=== PATIENT | female | born 1945 | race African-American/Black ===

== ENCOUNTER 2017-07-19 10:21 | Inpatient (IN) | payer MEDICARE, BC, OTHER ==
[~2017-07-19] VITALS: Ht 167.6 cm; Wt 77.1 kg
[2017-07-19] MEDS ORDERED: ATOR10TA69 PO (10:26)
[2017-07-19 11:43] LABS: BASOPHILS % 1.1 % (0.0-2.0); EOSINOPHILS % 3.2 % (0.0-5.0); HEMATOCRIT. 39.4 % (36.0-48.0); HEMOGLOBIN. 13.1 g/dL (12.0-16.0); LYMPHOCYTES % 31.8 % (20.0-50.0); MEAN CORPUSCULAR HEMOGLOBIN 30.1 pg (28.0-32.0); MEAN CORPUSCULAR VOLUME 90.9 fL (81.0-99.0); MEAN PLATELET VOLUME 8.4 fl (7.4-10.4); MONOCYTES % 6.9 % (2.0-8.0); PLATELET 255 x1000/uL (130-400); RED BLOOD CELL COUNT 4.34 mill/uL (4.2-5.4); RED CELL DISTRIBUTION WIDTH 14.8 % (11.6-14.6)
[2017-07-19 11:45] LABS: PROTHROMBIN TIME 10.8 sec (9.4-11.6)
[2017-07-19 11:55] LABS: CARBON DIOXIDE 28 mEq/L (21-32); CHLORIDE 104 mEq/L (98-107); TROPONIN I < 0.02 ng/mL (0.00-0.04)
[2017-07-19] MEDS ORDERED: SODIUM CHLORIDE 0.9% 1,000 ML IV ONE (13:45)
[2017-07-19] MEDS ORDERED: LEVETIRACETAM 500MG PREMIX 100 ML IV ONE (14:30)
[2017-07-19 18:30] LABS: CLARITY URINE CLOUDY (CLEAR); COLOR URINE YELLOW (YELLOW); GLUCOSE URINE NEGATIVE (NEGATIVE); KETONES URINE NEGATIVE (NEGATIVE); LEUKOCYTE ESTERASE URINE 3+ (NEGATIVE); NITRITE URINE POSITIVE (NEGATIVE); OCCULT BLOOD URINE TRACE (NEGATIVE); PH URINE 6.5 (4.5-8.0); PROTEIN URINE NEGATIVE (NEGATIVE); SPECIFIC GRAVITY URINE 1.017 (1.005-1.030)
[2017-07-19 20:55] VITALS: BP 129/70
[2017-07-19 22:00] VITALS: BP 129/70
[2017-07-19] MEDS ORDERED: APIX2.5T PO (22:16)
[2017-07-20] VITALS: BP_SYST 126; BP_SYST 158; BP_DIAS 61; BP_DIAS 71
[2017-07-20 04:00] VITALS: BP 138/69
[2017-07-20 07:31] LABS: BASOPHILS % 0.9 % (0.0-2.0); EOSINOPHILS % 2.4 % (0.0-5.0); HEMATOCRIT. 38.4 % (36.0-48.0); HEMOGLOBIN. 12.8 g/dL (12.0-16.0); MEAN CORPUSCULAR HEMOGLOBIN 30.1 pg (28.0-32.0); MEAN CORPUSCULAR VOLUME 90.6 fL (81.0-99.0); MEAN PLATELET VOLUME 8.7 fl (7.4-10.4); MONOCYTES % 8.9 % (2.0-8.0); NEUTROPHILS % 58.8 % (40.0-76.0); PLATELET 240 x1000/uL (130-400); RED BLOOD CELL COUNT 4.24 mill/uL (4.2-5.4); RED CELL DISTRIBUTION WIDTH 14.6 % (11.6-14.6)
[2017-07-20 08:00] VITALS: BP 152/74
[2017-07-20 08:03] LABS: CHLORIDE 106 mEq/L (98-107)
[2017-07-20 08:09] LABS: CARBON DIOXIDE 27 mEq/L (21-32)
[2017-07-20] MEDS: APIXABAN 2.5 MG TABLET PO SCH ×2 (08:31→17:21)
[2017-07-20] MEDS: LEVETIRACETAM 500MG/5ML CUP PO SCH ×2 (08:32→21:38)
[2017-07-20] MEDS ORDERED: IPRATROPIUM/ALBUTEROL 0.5-3(2.5)MG/3ML NEB INH PRN (10:00)
[2017-07-20] MEDS ORDERED: DOCUSATE SODIUM 100MG CAPSULE PO PRN (10:00)
[2017-07-20] MEDS ORDERED: ACETAMINOPHEN 325MG TABLET PO PRN (10:00)
[2017-07-20] MEDS ORDERED: ONDANSETRON HCL 4MG/2ML VIAL IV PRN (10:00)
[2017-07-20 10:45] LABS: CLARITY URINE CLOUDY (CLEAR); COLOR URINE YELLOW (YELLOW); GLUCOSE URINE NEGATIVE (NEGATIVE); KETONES URINE NEGATIVE (NEGATIVE); LEUKOCYTE ESTERASE URINE 3+ (NEGATIVE); NITRITE URINE POSITIVE (NEGATIVE); OCCULT BLOOD URINE 1+ (NEGATIVE); PH URINE 5.5 (4.5-8.0); PROTEIN URINE NEGATIVE (NEGATIVE); SPECIFIC GRAVITY URINE 1.016 (1.005-1.030); UROBILINOGEN URINE 0.2 E.U./dL (0.2-1.0)
[2017-07-20] MEDS: PANTOPRAZOLE SODIUM 40 MG/VIAL IV SCH (11:16)
[2017-07-20] MEDS: LEVOFLOXACIN 250MG PREMIX 50 ML IV SCH (11:16)
[2017-07-20] MEDS: DEXT 5%/0.45% NACL 1000ML 1,000 ML IV SCH (11:16)
[2017-07-20] MEDS: THIAMINE HCL 100MG TABLET PO SCH (11:19)
[2017-07-20] MEDS: FOLIC ACID 1MG TABLET PO SCH (11:19)
[2017-07-20] MEDS: MULTIVITAMINS,THER W-MINERALS TABLET PO SCH (11:19)
[2017-07-20 11:26] LABS: *AMPHETAMINES SCREEN URINE NEGATIVE (NEGATIVE); *BARBITURATES SCREEN URINE NEGATIVE (NEGATIVE); *BENZODIAZEPINES SCREEN URINE NEGATIVE (NEGATIVE); *COCAINE SCREEN URINE NEGATIVE (NEGATIVE); CANNABINOID URINE SCREEN NEGATIVE (NEGATIVE); METHADONE URINE SCREEN NEGATIVE (NEGATIVE); OPIATES URINE SCREEN NEGATIVE (NEGATIVE); PHENCYCLIDINE URINE SCREEN NEGATIVE (NEGATIVE)
[2017-07-20] MEDS ORDERED: PHENYTOIN SODIUM 1,000 MG in SODIUM CHLORIDE 0.9% 100 ML IV NR (11:30)
[2017-07-20 12:05] VITALS: BP 115/71
[2017-07-20 16:00] VITALS: BP 123/73
[2017-07-20 20:00] VITALS: BP 124/62
[2017-07-20] MEDS: ATORVASTATIN CALCIUM 10MG TABLET PO SCH (21:38)
[2017-07-21] VITALS: BP 117/62
[2017-07-21 04:00] VITALS: BP 124/62
[2017-07-21] MEDS: DEXT 5%/0.45% NACL 1000ML 1,000 ML IV SCH ×2 (04:31→21:46)
[2017-07-21 06:50] LABS: EOSINOPHILS % 3.6 % (0.0-5.0); HEMATOCRIT. 37.3 % (36.0-48.0); HEMOGLOBIN. 12.3 g/dL (12.0-16.0); LYMPHOCYTES % 39.2 % (20.0-50.0); MEAN CORPUSCULAR HEMOGLOBIN 29.9 pg (28.0-32.0); MEAN CORPUSCULAR VOLUME 90.7 fL (81.0-99.0); MEAN PLATELET VOLUME 8.9 fl (7.4-10.4); MONOCYTES % 11.9 % (2.0-8.0); NEUTROPHILS % 44.3 % (40.0-76.0); PLATELET 218 x1000/uL (130-400); RED BLOOD CELL COUNT 4.11 mill/uL (4.2-5.4); RED CELL DISTRIBUTION WIDTH 14.6 % (11.6-14.6)
[2017-07-21 07:30] LABS: CARBON DIOXIDE 30 mEq/L (21-32); CHLORIDE 104 mEq/L (98-107)
[2017-07-21 08:00] VITALS: BP 131/60
[2017-07-21] MEDS: FOLIC ACID 1MG TABLET PO SCH (09:13)
[2017-07-21] MEDS: MULTIVITAMINS,THER W-MINERALS TABLET PO SCH (09:13)
[2017-07-21] MEDS: THIAMINE HCL 100MG TABLET PO SCH (09:13)
[2017-07-21] MEDS: APIXABAN 2.5 MG TABLET PO SCH ×2 (09:13→17:12)
[2017-07-21] MEDS: PANTOPRAZOLE SODIUM 40 MG/VIAL IV SCH (09:13)
[2017-07-21] MEDS: LEVETIRACETAM 500MG/5ML CUP PO SCH ×2 (09:13→21:27)
[2017-07-21] MEDS: LEVOFLOXACIN 250MG PREMIX 50 ML IV SCH (10:38)
[2017-07-21 12:00] VITALS: BP 144/44
[2017-07-21 16:00] VITALS: BP 103/63
[2017-07-21 20:00] VITALS: BP 106/55
[2017-07-21] MEDS: ATORVASTATIN CALCIUM 10MG TABLET PO SCH (21:28)
[2017-07-21] MEDS: PHENYTOIN SODIUM EXTENDED 100MG CAPSULE PO SCH (21:28)
[2017-07-22 04:00] VITALS: BP 127/76
[2017-07-22 06:32] LABS: BASOPHILS % 0.8 % (0.0-2.0); HEMATOCRIT. 39.8 % (36.0-48.0); HEMOGLOBIN. 13.3 g/dL (12.0-16.0); MEAN CORPUSCULAR HEMOGLOBIN 30.3 pg (28.0-32.0); MEAN CORPUSCULAR VOLUME 90.4 fL (81.0-99.0); MEAN PLATELET VOLUME 8.9 fl (7.4-10.4); MONOCYTES % 11.5 % (2.0-8.0); NEUTROPHILS % 46.7 % (40.0-76.0); PLATELET 225 x1000/uL (130-400); RED CELL DISTRIBUTION WIDTH 14.6 % (11.6-14.6)
[2017-07-22 07:05] LABS: CARBON DIOXIDE 27 mEq/L (21-32); CHLORIDE 106 mEq/L (98-107)
[2017-07-22 07:18] LABS: TROPONIN I < 0.02 ng/mL (0.00-0.04)
[2017-07-22 07:53] VITALS: BP 120/62
[2017-07-22] MEDS: LEVETIRACETAM 500MG/5ML CUP PO SCH ×2 (11:12→20:11)
[2017-07-22] MEDS: FOLIC ACID 1MG TABLET PO SCH (11:13)
[2017-07-22] MEDS: THIAMINE HCL 100MG TABLET PO SCH (11:13)
[2017-07-22] MEDS: MULTIVITAMINS,THER W-MINERALS TABLET PO SCH (11:13)
[2017-07-22] MEDS: APIXABAN 2.5 MG TABLET PO SCH ×2 (11:13→18:24)
[2017-07-22] MEDS: PANTOPRAZOLE SODIUM 40 MG/VIAL IV SCH (11:13)
[2017-07-22 11:44] VITALS: BP 109/55
[2017-07-22] MEDS: DEXT 5%/0.45% NACL 1000ML 1,000 ML IV SCH (13:38)
[2017-07-22] MEDS: LEVOFLOXACIN 250MG PREMIX 50 ML IV SCH (13:39)
[2017-07-22] MEDS: NITROFURANTOIN MACROCRYSTAL 100 MG CAPSULE PO SCH (15:00)
[2017-07-22 16:52] VITALS: BP 123/66
[2017-07-22 20:00] VITALS: BP 120/71
[2017-07-22] MEDS: PHENYTOIN SODIUM EXTENDED 100MG CAPSULE PO SCH (20:12)
[2017-07-22] MEDS: ATORVASTATIN CALCIUM 10MG TABLET PO SCH (20:12)
[2017-07-23] VITALS: BP 119/75
[2017-07-23 04:00] VITALS: BP 117/65
[2017-07-23] MEDS: DEXT 5%/0.45% NACL 1000ML 1,000 ML IV SCH (04:25)
[2017-07-23 06:55] LABS: BASOPHILS % 0.9 % (0.0-2.0); EOSINOPHILS % 5.7 % (0.0-5.0); HEMATOCRIT. 35.9 % (36.0-48.0); LYMPHOCYTES % 46.2 % (20.0-50.0); MEAN CORPUSCULAR HEMOGLOBIN 30.1 pg (28.0-32.0); MEAN CORPUSCULAR VOLUME 90.1 fL (81.0-99.0); MONOCYTES % 12.8 % (2.0-8.0); NEUTROPHILS % 34.4 % (40.0-76.0); PLATELET 226 x1000/uL (130-400); RED BLOOD CELL COUNT 3.99 mill/uL (4.2-5.4); RED CELL DISTRIBUTION WIDTH 14.3 % (11.6-14.6)
[2017-07-23 07:24] LABS: CARBON DIOXIDE 30 mEq/L (21-32); CHLORIDE 106 mEq/L (98-107)
[2017-07-23 07:45] VITALS: BP 130/72
[2017-07-23] MEDS: PANTOPRAZOLE SODIUM 40 MG/VIAL IV SCH (08:59)
[2017-07-23] MEDS: MULTIVITAMINS,THER W-MINERALS TABLET PO SCH (08:59)
[2017-07-23] MEDS: FOLIC ACID 1MG TABLET PO SCH (08:59)
[2017-07-23] MEDS: THIAMINE HCL 100MG TABLET PO SCH (08:59)
[2017-07-23] MEDS: LEVETIRACETAM 500MG/5ML CUP PO SCH ×2 (08:59→21:53)
[2017-07-23] MEDS: APIXABAN 2.5 MG TABLET PO SCH ×2 (08:59→17:05)
[2017-07-23] MEDS: NITROFURANTOIN MACROCRYSTAL 100 MG CAPSULE PO SCH ×2 (09:01→17:06)
[2017-07-23 11:40] VITALS: BP 141/81
[2017-07-23 19:45] VITALS: BP 129/73
[2017-07-23] MEDS ORDERED: PHENYTOIN 100 MG/4 ML UDC PO NR (21:30)
[2017-07-23] MEDS: FAMOTIDINE 20MG/2ML VIAL IV SCH (21:53)
[2017-07-23] MEDS: ATORVASTATIN CALCIUM 10MG TABLET PO SCH (21:53)
[2017-07-24 00:44] VITALS: BP 137/76
[2017-07-24 05:03] VITALS: BP 136/75
[2017-07-24 06:15] LABS: EOSINOPHILS % 6.4 % (0.0-5.0); HEMATOCRIT. 36.9 % (36.0-48.0); HEMOGLOBIN. 12.3 g/dL (12.0-16.0); LYMPHOCYTES % 44.8 % (20.0-50.0); MEAN CORPUSCULAR HEMOGLOBIN 30.1 pg (28.0-32.0); MEAN CORPUSCULAR VOLUME 90.6 fL (81.0-99.0); MEAN PLATELET VOLUME 8.9 fl (7.4-10.4); MONOCYTES % 11.6 % (2.0-8.0); NEUTROPHILS % 36.2 % (40.0-76.0); PLATELET 223 x1000/uL (130-400); RED BLOOD CELL COUNT 4.07 mill/uL (4.2-5.4); RED CELL DISTRIBUTION WIDTH 14.8 % (11.6-14.6)
[2017-07-24 07:12] LABS: CARBON DIOXIDE 28 mEq/L (21-32); CHLORIDE 106 mEq/L (98-107)
[2017-07-24 07:46] VITALS: BP 111/66
[2017-07-24] MEDS: LEVETIRACETAM 500MG/5ML CUP PO SCH (08:35)
[2017-07-24] MEDS: FAMOTIDINE 20MG/2ML VIAL IV SCH (08:35)
[2017-07-24] MEDS: MULTIVITAMINS,THER W-MINERALS TABLET PO SCH (08:36)
[2017-07-24] MEDS: APIXABAN 2.5 MG TABLET PO SCH (08:36)
[2017-07-24] MEDS: FOLIC ACID 1MG TABLET PO SCH (08:36)
[2017-07-24] MEDS: NITROFURANTOIN MACROCRYSTAL 100 MG CAPSULE PO SCH (08:36)
[2017-07-24] MEDS: THIAMINE HCL 100MG TABLET PO SCH (08:36)
[2017-07-24 12:00] VITALS: BP 132/75
[2017-07-24 13:24] VITALS: BP 132/75
[2017-07-24 14:51] VITALS: BP 133/66
[2017-07-24] MEDS ORDERED: PHENYTOIN 100 MG/4 ML UDC PO SCH (21:00)
== END 2017-07-24 15:10 | disposition home or self-care (01) | DRG 101 ==
LOC: ER 11:27 → EDBEDREQ 14:27 → 6WST 14:39 → EDBEDREQ 14:45 → ENRESERV 18:22
PROVIDERS: ADMIT Family Medicine Adult Medicine; ATTEND Family Medicine Adult Medicine
DX: G40.909 Epilepsy, unspecified, not intractable, without status epilepticus (principal); E87.2 Acidosis; D68.59 Other primary thrombophilia; R65.10 Systemic inflammatory response syndrome (SIRS) of non-infectious origin without acute organ dysfunction; E44.1 Mild protein-calorie malnutrition; N39.0 Urinary tract infection, site not specified; F03.90 Unspecified dementia, unspecified severity, without behavioral disturbance, psychotic disturbance, mood disturbance, and anxiety; I25.5 Ischemic cardiomyopathy; I25.10 Atherosclerotic heart disease of native coronary artery without angina pectoris; B96.20 Unspecified Escherichia coli [E. coli] as the cause of diseases classified elsewhere; B96.89 Other specified bacterial agents as the cause of diseases classified elsewhere; E78.00 Pure hypercholesterolemia, unspecified; E78.5 Hyperlipidemia, unspecified; I10 Essential (primary) hypertension; M19.90 Unspecified osteoarthritis, unspecified site; Z79.01 Long term (current) use of anticoagulants; Z86.718 Personal history of other venous thrombosis and embolism; Z86.73 Personal history of transient ischemic attack (TIA), and cerebral infarction without residual deficits; Z68.27 Body mass index [BMI] 27.0-27.9, adult
CPT/HCPCS: 36415; 51702; 70450; 70551; 71010; 80048; 80053; 80185; 80305; 81001; 83605; 83735; 84443; 84484; 85025; 85610; 87077; 87086; 87186; 92610; 93005; 93970; 93971; 96361; 96365; 97167; 99285; A6261; C1893; C9113; G0482; J1165; J1953; J1956; J3490; J7030; J7050; J7620

== ENCOUNTER 2018-01-16 14:47 | Inpatient (IN) | payer MEDICARE, BC ==
[~2018-01-16] VITALS: Ht 172.7 cm; Wt 78.5 kg
[~2018-01-16 14:47] MED LIST: APIX2.5T PO; ATOR10TA69 PO
[2018-01-16] MEDS ORDERED: SODIUM CHLORIDE 0.9% 1,000 ML IV ONE (15:12)
[2018-01-16 15:33] LABS: BG BASE EXCESS -0.9 mmol/L (-2.0-2.0); BG CARBOXYHEMOGLOBIN 0.5 % (0.5-1.5); BG DEOXYHEMOGLOBIN 2.9 % (0.0-5.0); BG FRACTION INSPIRED OXYGEN 21; BG HCO3 ACT 21.8 mmol/L (22.0-26.0); BG METHEMOGLOBIN 0.2 % (0.0-1.5); BG OXYGEN SATURATION 97.1 % (92.0-98.5); BG OXYHEMOGLOBIN 96.4 % (94.0-97.0); BG PCO2 30.5 mmHg (35.0-45.0); BG PH 7.473 (7.350-7.450); BG PO2 87.1 mmHg (75.0-100.0); BG SAMPLE SITE RIGHT BRACHIAL; BG TOTAL HEMOGLOBIN 12.8 g/dL (12.0-18.0); BG VENT MODE ROOM AIR
[2018-01-16 15:53] LABS: INR 1.1; PROTHROMBIN TIME 11.2 sec (9.4-11.6)
[2018-01-16 15:55] LABS: HEMATOCRIT. 36.2 % (36.0-48.0); MEAN CORPUSCULAR HEMOGLOBIN 30.7 pg (28.0-32.0); MEAN CORPUSCULAR VOLUME 92.4 fL (81.0-99.0); MEAN PLATELET VOLUME 8.7 fl (7.4-10.4); PLATELET 121 x1000/uL (130-400); RED BLOOD CELL COUNT 3.92 mill/uL (4.2-5.4); RED CELL DISTRIBUTION WIDTH 13.7 % (11.6-14.6)
[2018-01-16 15:58] LABS: CHLORIDE 106 mEq/L (98-107)
[2018-01-16 16:03] LABS: TROPONIN I 0.26 ng/mL (0.00-0.04)
[2018-01-16 16:10] LABS: CARBAMAZEPINE < 0.5 ug/mL (4-12); PHENOBARBITAL < 2.1 ug/mL (15.0-40.0); VALPROIC ACID < 3.0 ug/mL (50-100)
[2018-01-16] MEDS ORDERED: SODIUM CHLORIDE 0.9% 1000ML BAG (SEPSIS BOLUS) IV ONE (16:15)
[2018-01-16] MEDS ORDERED: VANCOMYCIN 1 G PREMIX 200 ML IV ONE (16:15)
[2018-01-16] MEDS ORDERED: PIPERACILLIN/TAZ 3.375G PREMIX 50 ML IV ONE (16:15)
[2018-01-16] MEDS ORDERED: LEVOFLOXACIN 750MG PREMIX 150 ML IV ONE (16:45)
[2018-01-16] MEDS ORDERED: ACETAMINOPHEN 650MG SUPP PR ONE (16:45)
[2018-01-16 16:52] LABS: PLATELET ESTIMATE SLIGHTLY DECREASED
[2018-01-16 17:44] LABS: KETONES URINE TRACE (NEGATIVE); LEUKOCYTE ESTERASE URINE 3+ (NEGATIVE); NITRITE URINE NEGATIVE (NEGATIVE); OCCULT BLOOD URINE 3+ (NEGATIVE); PROTEIN URINE 3+ (NEGATIVE); SPECIFIC GRAVITY URINE 1.023 (1.005-1.030)
[2018-01-16 17:55] LABS: CLARITY URINE CLOUDY (CLEAR); COLOR URINE YELLOW (YELLOW)
[2018-01-16 23:30] VITALS: BP 98/61
[2018-01-17] VITALS: BP 91/56
[2018-01-17] MEDS ORDERED: ACETAMINOPHEN 650MG SUPP PR PRN (01:00)
[2018-01-17] MEDS: DEXT 5%/0.45% NACL 1000ML 1,000 ML IV SCH ×3 (03:31→17:43)
[2018-01-17 03:34] LABS: BG BASE EXCESS -2.6 mmol/L (-2.0-2.0); BG CARBOXYHEMOGLOBIN 0.3 % (0.5-1.5); BG DEOXYHEMOGLOBIN 4.5 % (0.0-5.0); BG FRACTION INSPIRED OXYGEN 21; BG HCO3 ACT 21.1 mmol/L (22.0-26.0); BG METHEMOGLOBIN 0.3 % (0.0-1.5); BG OXYGEN SATURATION 95.5 % (92.0-98.5); BG OXYHEMOGLOBIN 94.9 % (94.0-97.0); BG PH 7.424 (7.350-7.450); BG PO2 75.3 mmHg (75.0-100.0); BG SAMPLE SITE RIGHT RADIAL; BG TOTAL HEMOGLOBIN 11.1 g/dL (12.0-18.0); BG VENT MODE ROOM AIR
[2018-01-17 04:00] VITALS: BP 90/48
[2018-01-17] MEDS: PIPERACILLIN/TAZ 3.375G PREMIX 50 ML IV SCH ×3 (05:33→17:38)
[2018-01-17 09:30] VITALS: BP 101/52
[2018-01-17] MEDS: ENOXAPARIN 40MG/0.4ML SYR SUBCUT SCH (10:01)
[2018-01-17 10:57] LABS: HEMATOCRIT. 31.6 % (36.0-48.0); HEMOGLOBIN. 10.4 g/dL (12.0-16.0); MEAN CORPUSCULAR HEMOGLOBIN 30.1 pg (28.0-32.0); MEAN CORPUSCULAR VOLUME 91.7 fL (81.0-99.0); MEAN PLATELET VOLUME 9.4 fl (7.4-10.4); PLATELET 119 x1000/uL (130-400); RED BLOOD CELL COUNT 3.44 mill/uL (4.2-5.4); RED CELL DISTRIBUTION WIDTH 13.9 % (11.6-14.6)
[2018-01-17 11:02] LABS: INR 1.1; PROTHROMBIN TIME 11.3 sec (9.4-11.6)
[2018-01-17 11:25] LABS: PLATELET ESTIMATE DECREASED
[2018-01-17 11:41] LABS: CHLORIDE 110 mEq/L (98-107)
[2018-01-17 12:45] VITALS: BP 108/56
[2018-01-17] MEDS ORDERED: LEVETIRACETAM 500 MG in SODIUM CHLORIDE 0.9% 100 ML IV SCH (13:45)
[2018-01-17] MEDS: PHENYTOIN SODIUM 300 MG in SODIUM CHLORIDE 0.9% 50 ML IV SCH (15:14)
[2018-01-17] MEDS: LEVETIRACETAM 500MG PREMIX 100 ML IV SCH (15:54)
[2018-01-17 16:26] VITALS: BP 113/68
[2018-01-17 20:00] VITALS: BP 114/60
[2018-01-18] VITALS (10 sets, daily range): BP systolic 102–138; BP diastolic 51–88
[2018-01-18] MEDS: LEVETIRACETAM 500MG PREMIX 100 ML IV SCH ×2 (00:11→10:43)
[2018-01-18] MEDS: DEXT 5%/0.45% NACL 1000ML 1,000 ML IV SCH ×2 (00:13→09:37)
[2018-01-18] MEDS: PIPERACILLIN/TAZ 3.375G PREMIX 50 ML IV SCH ×3 (00:48→11:28)
[2018-01-18 08:03] LABS: HEMATOCRIT. 31.6 % (36.0-48.0); HEMOGLOBIN. 10.6 g/dL (12.0-16.0); MEAN CORPUSCULAR HEMOGLOBIN 30.7 pg (28.0-32.0); MEAN CORPUSCULAR VOLUME 91.4 fL (81.0-99.0); MEAN PLATELET VOLUME 9.5 fl (7.4-10.4); PLATELET 121 x1000/uL (130-400); RED BLOOD CELL COUNT 3.45 mill/uL (4.2-5.4); RED CELL DISTRIBUTION WIDTH 14.1 % (11.6-14.6)
[2018-01-18 08:07] LABS: CHLORIDE 110 mEq/L (98-107)
[2018-01-18 08:12] LABS: BG BASE EXCESS 0.3 mmol/L (-2.0-2.0); BG DEOXYHEMOGLOBIN 1.8 % (0.0-5.0); BG FRACTION INSPIRED OXYGEN 28; BG HCO3 ACT 24.1 mmol/L (22.0-26.0); BG METHEMOGLOBIN 0.3 % (0.0-1.5); BG OXYGEN SATURATION 98.2 % (92.0-98.5); BG OXYHEMOGLOBIN 97.9 % (94.0-97.0); BG PCO2 36.1 mmHg (35.0-45.0); BG PH 7.443 (7.350-7.450); BG PO2 112.9 mmHg (75.0-100.0); BG SAMPLE SITE RIGHT BRACHIAL; BG TOTAL HEMOGLOBIN 10.9 g/dL (12.0-18.0); BG VENT MODE NASAL CANNULA
[2018-01-18 08:29] LABS: CREATINE KINASE 295 IU/L (26-192); CREATINE KINASE MB FRACTION 0.5 ng/mL (0.5-3.6); HDL CHOLESTEROL 31 mg/dL (40-59); LDL CHOLESTEROL 93 mg/dL (5-100); TROPONIN I 0.05 ng/mL (0.00-0.04)
[2018-01-18] MEDS: ENOXAPARIN 40MG/0.4ML SYR SUBCUT SCH (09:37)
[2018-01-18] MEDS: PHENYTOIN SODIUM 300 MG in SODIUM CHLORIDE 0.9% 50 ML IV SCH (09:37)
[2018-01-18 09:39] LABS: PLATELET ESTIMATE SLIGHTLY DECREASED
[2018-01-18] MEDS ORDERED: MAGNESIUM 1 G PREMIX 100 ML IV SCH (11:00)
[2018-01-18] MEDS: THIAMINE HCL 100MG TABLET PO SCH (11:30)
[2018-01-18] MEDS: MULTIVITAMINS,THER W-MINERALS TABLET PO SCH (11:30)
[2018-01-18] MEDS: FOLIC ACID 1MG TABLET PO SCH (11:30)
[2018-01-18] MEDS: DEXT 5%/0.45% NACL KCL 20MEQ/L 1,000 ML IV SCH (13:35)
[2018-01-18 14:11] LABS: VITAMIN B12 SERUM 551 pg/mL (211-911)
[2018-01-18 14:59] LABS: FOLIC ACID (FOLATE) SERUM > 20.00 ng/mL (>5.38)
[2018-01-18 15:41] LABS: T4 FREE 1.25 ng/dL (0.76-1.46)
[2018-01-18 16:23] LABS: AMMONIA 34 uMol/L (<32)
[2018-01-18 17:07] LABS: *AMPHETAMINES SCREEN URINE NEGATIVE (NEGATIVE); *BARBITURATES SCREEN URINE NEGATIVE (NEGATIVE); *BENZODIAZEPINES SCREEN URINE NEGATIVE (NEGATIVE); *COCAINE SCREEN URINE NEGATIVE (NEGATIVE); CANNABINOID URINE SCREEN NEGATIVE (NEGATIVE); METHADONE URINE SCREEN NEGATIVE (NEGATIVE); OPIATES URINE SCREEN NEGATIVE (NEGATIVE); PHENCYCLIDINE URINE SCREEN NEGATIVE (NEGATIVE)
[2018-01-18] MEDS: MEROPENEM 1,000 MG in SODIUM CHLORIDE 0.9% 100 ML IV SCH (18:33)
[2018-01-18] MEDS ORDERED: FOLIC ACID 1 MG, THIAMINE HCL 100 MG, MVI, ADULT NO.1 10 ML in DEXTROSE 5% WATER 1,000 ML IV ONE ×4 (20:30)
[2018-01-18] MEDS: LEVETIRACETAM 500 MG in SODIUM CHLORIDE 0.9% 100 ML IV SCH (20:45)
[2018-01-19] VITALS (12 sets, daily range): BP systolic 122–145; BP diastolic 47–75
[2018-01-19] MEDS: DEXT 5%/0.45% NACL KCL 20MEQ/L 1,000 ML IV SCH ×2 (01:20→14:14)
[2018-01-19] MEDS: MEROPENEM 1,000 MG in SODIUM CHLORIDE 0.9% 100 ML IV SCH ×3 (01:58→17:06)
[2018-01-19 07:44] LABS: BASOPHILS % 0.3 % (0.0-2.0); EOSINOPHILS % 2.9 % (0.0-5.0); HEMATOCRIT. 31.8 % (36.0-48.0); HEMOGLOBIN. 10.5 g/dL (12.0-16.0); LYMPHOCYTES % 15.6 % (20.0-50.0); MEAN CORPUSCULAR HEMOGLOBIN 30.2 pg (28.0-32.0); MEAN CORPUSCULAR VOLUME 91.4 fL (81.0-99.0); MEAN PLATELET VOLUME 9.5 fl (7.4-10.4); MONOCYTES % 14.8 % (2.0-8.0); NEUTROPHILS % 66.4 % (40.0-76.0); PLATELET 127 x1000/uL (130-400); RED BLOOD CELL COUNT 3.48 mill/uL (4.2-5.4)
[2018-01-19] MEDS: MULTIVITAMINS,THER W-MINERALS TABLET PO SCH (08:06)
[2018-01-19] MEDS: FOLIC ACID 1MG TABLET PO SCH (08:06)
[2018-01-19] MEDS: THIAMINE HCL 100MG TABLET PO SCH (08:06)
[2018-01-19 08:12] LABS: CHLORIDE 109 mEq/L (98-107)
[2018-01-19] MEDS: LEVETIRACETAM 500 MG in SODIUM CHLORIDE 0.9% 100 ML IV SCH ×2 (08:13→21:35)
[2018-01-19] MEDS: ENOXAPARIN 40MG/0.4ML SYR SUBCUT SCH ×2 (08:14→21:36)
[2018-01-19 08:27] LABS: HDL CHOLESTEROL 27 mg/dL (40-59); LDL CHOLESTEROL 99 mg/dL (5-100); PHOSPHORUS 2.3 mg/dL (2.5-4.9)
[2018-01-19] MEDS: PHENYTOIN SODIUM 300 MG in SODIUM CHLORIDE 0.9% 50 ML IV SCH (09:17)
[2018-01-19 10:27] LABS: BG CARBOXYHEMOGLOBIN 0.2 % (0.5-1.5); BG DEOXYHEMOGLOBIN 4.4 % (0.0-5.0); BG FRACTION INSPIRED OXYGEN 21; BG HCO3 ACT 27.1 mmol/L (22.0-26.0); BG METHEMOGLOBIN 0.3 % (0.0-1.5); BG OXYGEN SATURATION 95.6 % (92.0-98.5); BG OXYHEMOGLOBIN 95.1 % (94.0-97.0); BG PCO2 39.8 mmHg (35.0-45.0); BG PH 7.451 (7.350-7.450); BG PO2 77.1 mmHg (75.0-100.0); BG SAMPLE SITE RIGHT RADIAL; BG TOTAL HEMOGLOBIN 10.9 g/dL (12.0-18.0); BG VENT MODE ROOM AIR
[2018-01-19] MEDS ORDERED: MAGNESIUM 1 G PREMIX 100 ML IV SCH (11:00)
[2018-01-19] MEDS ORDERED: POTASSIUM CHLORIDE 20MEQ TABLET SR PO NR (11:15)
[2018-01-19] MEDS ORDERED: LACTULOSE 20G/30ML UDC PO NR (15:15)
[2018-01-20] VITALS (11 sets, daily range): BP systolic 114–149; BP diastolic 58–81
[2018-01-20] MEDS: MEROPENEM 1,000 MG in SODIUM CHLORIDE 0.9% 100 ML IV SCH ×3 (01:18→16:49)
[2018-01-20] MEDS: DEXT 5%/0.45% NACL KCL 20MEQ/L 1,000 ML IV SCH ×2 (04:09→16:49)
[2018-01-20 06:37] LABS: HEMATOCRIT. 33.9 % (36.0-48.0); HEMOGLOBIN. 11.3 g/dL (12.0-16.0); MEAN CORPUSCULAR HEMOGLOBIN 30.4 pg (28.0-32.0); MEAN CORPUSCULAR VOLUME 90.9 fL (81.0-99.0); MEAN PLATELET VOLUME 10.1 fl (7.4-10.4); PLATELET 138 x1000/uL (130-400); RED BLOOD CELL COUNT 3.73 mill/uL (4.2-5.4); RED CELL DISTRIBUTION WIDTH 13.9 % (11.6-14.6)
[2018-01-20 07:19] LABS: CHLORIDE 112 mEq/L (98-107)
[2018-01-20 07:23] LABS: HDL CHOLESTEROL 25 mg/dL (40-59); LDL CHOLESTEROL 113 mg/dL (5-100)
[2018-01-20 08:11] LABS: BG BASE EXCESS 3.5 mmol/L (-2.0-2.0); BG CARBOXYHEMOGLOBIN 0.8 % (0.5-1.5); BG DEOXYHEMOGLOBIN 4.5 % (0.0-5.0); BG HCO3 ACT 26.9 mmol/L (22.0-26.0); BG METHEMOGLOBIN 0.3 % (0.0-1.5); BG OXYGEN SATURATION 95.4 % (92.0-98.5); BG OXYHEMOGLOBIN 94.4 % (94.0-97.0); BG PO2 74.4 mmHg (75.0-100.0); BG SAMPLE SITE RIGHT RADIAL; BG TOTAL HEMOGLOBIN 12.8 g/dL (12.0-18.0); BG VENT MODE ROOM AIR
[2018-01-20] MEDS ORDERED: PHENYTOIN SODIUM 800 MG in SODIUM CHLORIDE 0.9% 100 ML IV ONE (08:15)
[2018-01-20] MEDS ORDERED: PHENYTOIN SODIUM 800 MG in SODIUM CHLORIDE 0.9% 100 ML IV SCH (08:30)
[2018-01-20] MEDS ORDERED: MAGNESIUM 1 G PREMIX 100 ML IV SCH ×2 (09:00→10:30)
[2018-01-20] MEDS: MULTIVITAMINS,THER W-MINERALS TABLET PO SCH (09:00)
[2018-01-20] MEDS: THIAMINE HCL 100MG TABLET PO SCH (09:00)
[2018-01-20] MEDS: FOLIC ACID 1MG TABLET PO SCH (09:00)
[2018-01-20] MEDS: PHENYTOIN SODIUM 300 MG in SODIUM CHLORIDE 0.9% 50 ML IV SCH (09:05)
[2018-01-20] MEDS: LEVETIRACETAM 500 MG in SODIUM CHLORIDE 0.9% 100 ML IV SCH ×2 (09:05→23:14)
[2018-01-20] MEDS: ENOXAPARIN 40MG/0.4ML SYR SUBCUT SCH ×2 (09:05→20:30)
[2018-01-20 09:20] LABS: PLATELET ESTIMATE NORMAL
[2018-01-20] MEDS ORDERED: MAGNESIUM 2 G PREMIX 50 ML IV ONE (10:00)
[2018-01-20] MEDS: MAGNESIUM OXIDE 400MG TABLET PO SCH (10:00)
[2018-01-20] MEDS ORDERED: POTASSIUM CHLORIDE 20MEQ TABLET SR PO ONE (10:15)
[2018-01-20] MEDS ORDERED: SODIUM BICARBONATE 4% (2.4MEQ) 5ML VIAL IV ONE (10:57)
[2018-01-20] MEDS ORDERED: IPRATROPIUM/ALBUTEROL 0.5-3(2.5)MG/3ML NEB HHN PRN (13:45)
[2018-01-20] MEDS ORDERED: ASPIRIN 81MG EC TABLET PO SCH (16:00)
[2018-01-20] MEDS: IPRATROPIUM/ALBUTEROL 0.5-3(2.5)MG/3ML NEB HHN SCH (20:12)
[2018-01-21] VITALS (10 sets, daily range): BP systolic 118–146; BP diastolic 58–98
[2018-01-21] MEDS: ACETYLCYSTEINE 100MG/ML 10% VIAL 4ML INH SCH ×2 (00:34→15:46)
[2018-01-21] MEDS: IPRATROPIUM/ALBUTEROL 0.5-3(2.5)MG/3ML NEB HHN SCH ×4 (00:34→15:46)
[2018-01-21] MEDS: MEROPENEM 1,000 MG in SODIUM CHLORIDE 0.9% 100 ML IV SCH ×2 (01:32→11:14)
[2018-01-21] MEDS: DEXT 5%/0.45% NACL KCL 20MEQ/L 1,000 ML IV SCH (06:15)
[2018-01-21 06:54] LABS: BASOPHILS % 0.6 % (0.0-2.0); EOSINOPHILS % 2.3 % (0.0-5.0); HEMATOCRIT. 35.6 % (36.0-48.0); HEMOGLOBIN. 11.9 g/dL (12.0-16.0); MEAN CORPUSCULAR HEMOGLOBIN 30.5 pg (28.0-32.0); MEAN CORPUSCULAR VOLUME 91.2 fL (81.0-99.0); MEAN PLATELET VOLUME 10.1 fl (7.4-10.4); MONOCYTES % 14.1 % (2.0-8.0); PLATELET 166 x1000/uL (130-400); RED CELL DISTRIBUTION WIDTH 13.8 % (11.6-14.6)
[2018-01-21 07:20] LABS: CHLORIDE 108 mEq/L (98-107)
[2018-01-21 07:32] LABS: PHOSPHORUS 2.3 mg/dL (2.5-4.9)
[2018-01-21] MEDS: ENOXAPARIN 40MG/0.4ML SYR SUBCUT SCH (08:06)
[2018-01-21] MEDS: LEVETIRACETAM 500 MG in SODIUM CHLORIDE 0.9% 100 ML IV SCH (08:06)
[2018-01-21] MEDS: THIAMINE HCL 100MG TABLET PO SCH (08:07)
[2018-01-21] MEDS: MULTIVITAMINS,THER W-MINERALS TABLET PO SCH (08:07)
[2018-01-21] MEDS: MAGNESIUM OXIDE 400MG TABLET PO SCH (08:07)
[2018-01-21] MEDS: FOLIC ACID 1MG TABLET PO SCH (08:07)
[2018-01-21] MEDS ORDERED: ASPIRIN 81MG TABLET PO SCH (09:00)
[2018-01-21] MEDS: PHENYTOIN SODIUM 300 MG in SODIUM CHLORIDE 0.9% 50 ML IV SCH (09:49)
[2018-01-21] MEDS ORDERED: METRONIDAZOLE 500 MG PREMIX 100 ML IV SCH (11:00)
[2018-01-21] MEDS ORDERED: CEFEPIME 2,000 MG in DEXT 5% WATER 100 ML IV SCH (11:00)
[2018-01-21] MEDS ORDERED: PHENYTOIN SODIUM 700 MG in SODIUM CHLORIDE 0.9% 100 ML IV SCH (11:00)
[2018-01-21] MEDS ORDERED: POTASSIUM PHOS,M-BASIC-D-BASIC 15 MMOL in DEXT 5% WATER 245 ML IV SCH (12:00)
[2018-01-21] MEDS ORDERED: GELATIN SPONGE,ABSORBABLE 12-7MM SPONGE ONE (14:58)
[2018-01-21] MEDS ORDERED: SODIUM BICARBONATE 4% (2.4MEQ) 5ML VIAL IV ONE (14:59)
[2018-01-21] MEDS ORDERED: LEVETIRACETAM 500MG PREMIX 100 ML IV SCH (21:00)
== END 2018-01-21 18:25 | DRG 871 ==
LOC: ER 14:47 → EDBEDREQTM 20:41 → EDBEDREQ 20:41 → EDBEDREQSVC 20:41 → 6WST 21:13 → EDBEDREQTM 21:16 → EDBEDREQ 21:16 → ENRESERV 21:50 → 3WST 01-18 14:52
PROVIDERS: ADMIT Specialist; ATTEND Specialist
PROC: 4A00X4Z Measurement of Central Nervous Electrical Activity, External Approach (ICD-10-PCS; principal; 2018-01-18)
PROC: 02HV33Z Insertion of Infusion Device into Superior Vena Cava, Percutaneous Approach (ICD-10-PCS; 2018-01-20)
PROC: B548ZZA Ultrasonography of Superior Vena Cava, Guidance (ICD-10-PCS; 2018-01-20)
DX: A41.51 Sepsis due to Escherichia coli [E. coli] (principal); G92 Toxic encephalopathy; J96.00 Acute respiratory failure, unspecified whether with hypoxia or hypercapnia; J69.0 Pneumonitis due to inhalation of food and vomit; E43 Unspecified severe protein-calorie malnutrition; E87.2 Acidosis; D68.59 Other primary thrombophilia; E83.42 Hypomagnesemia; N39.0 Urinary tract infection, site not specified; D69.6 Thrombocytopenia, unspecified; R65.20 Severe sepsis without septic shock; G40.909 Epilepsy, unspecified, not intractable, without status epilepticus; F03.90 Unspecified dementia, unspecified severity, without behavioral disturbance, psychotic disturbance, mood disturbance, and anxiety; B96.20 Unspecified Escherichia coli [E. coli] as the cause of diseases classified elsewhere; E78.00 Pure hypercholesterolemia, unspecified; E78.5 Hyperlipidemia, unspecified; M19.90 Unspecified osteoarthritis, unspecified site; R13.10 Dysphagia, unspecified; Z16.12 Extended spectrum beta lactamase (ESBL) resistance; D64.9 Anemia, unspecified; I10 Essential (primary) hypertension; Z74.01 Bed confinement status; Z79.01 Long term (current) use of anticoagulants; Z86.718 Personal history of other venous thrombosis and embolism; Z86.73 Personal history of transient ischemic attack (TIA), and cerebral infarction without residual deficits; Z87.440 Personal history of urinary (tract) infections; Z91.14 Patient's other noncompliance with medication regimen; Z93.1 Gastrostomy status; Z79.899 Other long term (current) drug therapy; Z68.26 Body mass index [BMI] 26.0-26.9, adult
CPT/HCPCS: 36415; 36569; 36600; 51702; 70450; 70551; 71045; 76937; 80048; 80053; 80061; 80076; 80156; 80165; 80184; 80185; 80305; 81003; 82140; 82375; 82550; 82553; 82607; 82746; 82805; 83036; 83605; 83735; 83880; 84100; 84439; 84443; 84481; 84484; 85025; 85379; 85384; 85610; 87040; 87077; 87086; 87186; 92610; 93005; 93306; 93970; 94640; 96361; 96365; 96366; 96367; 96375; 97162; 97165; 99291; C1725; G0482; J1165; J1650; J1953; J1956; J2185; J2543; J3370; J3411; J3475; J3490; J7030; J7040; J7050; J7060; J7070; J7608; J7620

== ENCOUNTER 2018-05-02 14:48 | Inpatient (IN) | payer MEDICARE, BC ==
[~2018-05-02] VITALS: Ht 172.7 cm; Wt 78.5 kg
[2018-05-02] MEDS ORDERED: LEVOFLOXACIN 750MG PREMIX 150 ML IV ONE (15:30)
[2018-05-02] MEDS ORDERED: SODIUM CHLORIDE 0.9% 1000ML BAG (SEPSIS BOLUS) IV ONE (15:30)
[2018-05-02 15:54] LABS: HEMATOCRIT. 41.5 % (36.0-48.0); HEMOGLOBIN. 13.8 g/dL (12.0-16.0); MEAN CORPUSCULAR HEMOGLOBIN 30.3 pg (28.0-32.0); MEAN PLATELET VOLUME 8.6 fl (7.4-10.4); PLATELET 168 x1000/uL (130-400); RED BLOOD CELL COUNT 4.56 mill/uL (4.2-5.4); RED CELL DISTRIBUTION WIDTH 14.7 % (11.6-14.6)
[2018-05-02 16:00] LABS: CHLORIDE 101 mEq/L (98-107)
[2018-05-02 16:52] LABS: INR 1.1; PARTIAL THROMBOPLASTIN TIME 29.6 sec (23.4-31.0); PROTHROMBIN TIME 11.3 sec (9.4-11.6)
[2018-05-02 17:06] LABS: ATYPICAL LYMPHOCYTES 1
[2018-05-02 17:07] LABS: PLATELET ESTIMATE NORMAL
[2018-05-02] MEDS ORDERED: ASPIRIN 300MG SUPP PR ONE (17:15)
[2018-05-02 17:49] LABS: CLARITY URINE CLOUDY (CLEAR); COLOR URINE YELLOW (YELLOW); KETONES URINE NEGATIVE (NEGATIVE); LEUKOCYTE ESTERASE URINE 2+ (NEGATIVE); NITRITE URINE POSITIVE (NEGATIVE); OCCULT BLOOD URINE 2+ (NEGATIVE); PROTEIN URINE TRACE (NEGATIVE); UROBILINOGEN URINE 0.2 E.U./dL (0.2-1.0)
[2018-05-02] MEDS ORDERED: ACETAMINOPHEN 325MG TABLET PO PRN (19:00)
[2018-05-02] MEDS ORDERED: ONDANSETRON HCL 4MG/2ML VIAL IV PRN (19:00)
[2018-05-02] MEDS ORDERED: MAGNESIUM/ALUMINUM HYDROXIDE/SIMETHICONE 30ML UDC PO PRN (19:00)
[2018-05-02] MEDS ORDERED: HYDROCODONE/ACETAMINOPHEN 5/325MG TABLET PO PRN (19:00)
[2018-05-02] MEDS ORDERED: DIPHENHYDRAMINE 50MG/ML VIAL IV PRN (20:42)
[2018-05-02] MEDS ORDERED: LORAZEPAM 0.5MG TABLET PO PRN (20:42)
[2018-05-02] MEDS ORDERED: CLONIDINE 0.1MG TABLET PO PRN (20:45)
[2018-05-02] MEDS ORDERED: IPRATROPIUM/ALBUTEROL 0.5-3(2.5)MG/3ML NEB INH PRN (20:46)
[2018-05-02] MEDS ORDERED: HYDROCODONE/APAP 7.5/325MG 1 TAB TABLET PO PRN (20:48)
[2018-05-02] MEDS ORDERED: ENOXAPARIN 40MG/0.4ML SYR SUBCUT SCH (22:00)
[2018-05-02 22:34] VITALS: BP 108/69
[2018-05-02] MEDS ORDERED: KEPPRA PO (22:58)
[2018-05-02] MEDS: DEXT 5%/0.45% NACL KCL 10MEQ/L 1,000 ML IV SCH (23:28)
[2018-05-03] VITALS: BP 108/65
[2018-05-03 04:00] VITALS: BP 108/69
[2018-05-03 08:00] VITALS: BP 103/56
[2018-05-03 08:48] LABS: BASOPHILS % 0.3 % (0.0-2.0); EOSINOPHILS % 0.1 % (0.0-5.0); HEMATOCRIT. 33.7 % (36.0-48.0); HEMOGLOBIN. 11.3 g/dL (12.0-16.0); LYMPHOCYTES % 7.3 % (20.0-50.0); MEAN CORPUSCULAR VOLUME 89.8 fL (81.0-99.0); MONOCYTES % 10.3 % (2.0-8.0); PLATELET 159 x1000/uL (130-400); RED BLOOD CELL COUNT 3.75 mill/uL (4.2-5.4); RED CELL DISTRIBUTION WIDTH 14.3 % (11.6-14.6)
[2018-05-03 08:49] LABS: CHLORIDE 106 mEq/L (98-107)
[2018-05-03 09:04] LABS: LDL CHOLESTEROL 101 mg/dL (5-100)
[2018-05-03 09:06] LABS: HDL CHOLESTEROL 58 mg/dL (40-59)
[2018-05-03] MEDS: APIXABAN 2.5 MG TABLET PO SCH ×2 (09:19→17:07)
[2018-05-03] MEDS: ASPIRIN 81MG EC TABLET PO SCH (09:19)
[2018-05-03 11:56] LABS: FOLIC ACID (FOLATE) SERUM 17.8 ng/mL (>5.38)
[2018-05-03 12:00] VITALS: BP 101/55
[2018-05-03 12:05] LABS: T4 FREE 1.1 ng/dL (0.76-1.46)
[2018-05-03 14:02] LABS: AMMONIA 20 uMol/L (<32)
[2018-05-03 16:00] VITALS: BP 113/50
[2018-05-03] MEDS ORDERED: LEVOFLOXACIN 500MG PREMIX 100 ML IV SCH (16:00)
[2018-05-03] MEDS: DEXT 5%/0.45% NACL KCL 10MEQ/L 1,000 ML IV SCH (17:06)
[2018-05-03] MEDS: LEVETIRACETAM 500MG TABLET PO SCH ×2 (17:07→22:19)
[2018-05-03 20:11] VITALS: BP 94/48
[2018-05-03] MEDS: ATORVASTATIN CALCIUM 10MG TABLET PO SCH (21:00)
[2018-05-03] MEDS ORDERED: ACETAMINOPHEN 650MG SUPP PR PRN (22:30)
[2018-05-04] VITALS (12 sets, daily range): BP systolic 99–143; BP diastolic 57–78
[2018-05-04] MEDS ORDERED: PIPERACILLIN SODIUM/TAZOBACTAM 4.5 G in DEXT 5% WATER 100 ML IV SCH ×2
[2018-05-04] MEDS ORDERED: VANCOMYCIN 1500MG in DEXTROSE 5% WATER 250ML IV SCH (01:00)
[2018-05-04] MEDS ORDERED: PIPERACILLIN/TAZ 3.375G PREMIX 50 ML IV SCH (06:00)
[2018-05-04 07:14] LABS: HEMATOCRIT. 32.6 % (36.0-48.0); HEMOGLOBIN. 11.1 g/dL (12.0-16.0); MEAN CORPUSCULAR HEMOGLOBIN 30.7 pg (28.0-32.0); MEAN CORPUSCULAR VOLUME 90.3 fL (81.0-99.0); MEAN PLATELET VOLUME 9.2 fl (7.4-10.4); PLATELET 127 x1000/uL (130-400); RED BLOOD CELL COUNT 3.61 mill/uL (4.2-5.4)
[2018-05-04 07:35] LABS: CHLORIDE 105 mEq/L (98-107)
[2018-05-04] MEDS: APIXABAN 2.5 MG TABLET PO SCH ×2 (08:12→16:22)
[2018-05-04] MEDS: ASPIRIN 81MG EC TABLET PO SCH (08:12)
[2018-05-04] MEDS: LEVETIRACETAM 500MG TABLET PO SCH (08:12)
[2018-05-04 10:01] LABS: PLATELET ESTIMATE SLIGHTLY DECREASED
[2018-05-04] MEDS: DEXT 5%/0.45% NACL KCL 10MEQ/L 1,000 ML IV SCH ×2 (12:29→23:10)
[2018-05-04] MEDS: MEROPENEM 500 MG in SODIUM CHLORIDE 0.9% 50 ML IV SCH ×2 (12:52→22:31)
[2018-05-04] MEDS ORDERED: VANCOMYCIN 1250MG in DEXTROSE 5% WATER 250ML IV SCH (13:00)
[2018-05-04] MEDS: LEVETIRACETAM 500 MG in SODIUM CHLORIDE 0.9% 100 ML IV SCH (23:10)
[2018-05-05] VITALS (12 sets, daily range): BP systolic 91–120; BP diastolic 55–84
[2018-05-05] MEDS: MEROPENEM 500 MG in SODIUM CHLORIDE 0.9% 50 ML IV SCH ×3 (06:50→22:58)
[2018-05-05] MEDS ORDERED: SODIUM BICARBONATE 4% (2.4MEQ) 5ML VIAL IV ONE (08:15)
[2018-05-05] MEDS ORDERED: LIDOCAINE HCL/PF 1% 10 MG/ML 5ML VIAL ONE (08:15)
[2018-05-05] MEDS: DEXT 5%/0.45% NACL KCL 10MEQ/L 1,000 ML IV SCH ×2 (10:08→17:29)
[2018-05-05] MEDS: LEVETIRACETAM 500 MG in SODIUM CHLORIDE 0.9% 100 ML IV SCH ×2 (10:11→21:00)
[2018-05-05] MEDS ORDERED: LACTULOSE 20G/30ML UDC PO NR (14:30)
[2018-05-05] MEDS: DOCUSATE SODIUM 250MG CAPSULE PO SCH (14:30)
[2018-05-05 16:42] LABS: HEMATOCRIT. 31.7 % (36.0-48.0); HEMOGLOBIN. 10.6 g/dL (12.0-16.0); MEAN CORPUSCULAR VOLUME 89.9 fL (81.0-99.0); MEAN PLATELET VOLUME 9.8 fl (7.4-10.4); PLATELET 148 x1000/uL (130-400); RED BLOOD CELL COUNT 3.52 mill/uL (4.2-5.4); RED CELL DISTRIBUTION WIDTH 14.5 % (11.6-14.6)
[2018-05-05 16:44] LABS: CHLORIDE 105 mEq/L (98-107)
[2018-05-05] MEDS: IPRATROPIUM/ALBUTEROL 0.5-3(2.5)MG/3ML NEB HHN SCH ×2 (20:10→23:52)
[2018-05-05 23:41] LABS: PLATELET ESTIMATE NORMAL
[2018-05-05] MEDS: ACETYLCYSTEINE 100MG/ML 10% VIAL 4ML INH SCH (23:52)
[2018-05-06] VITALS (12 sets, daily range): BP systolic 105–129; BP diastolic 45–71
[2018-05-06] MEDS: IPRATROPIUM/ALBUTEROL 0.5-3(2.5)MG/3ML NEB HHN SCH ×5 (04:29→21:09)
[2018-05-06] MEDS: DEXT 5%/0.45% NACL KCL 10MEQ/L 1,000 ML IV SCH ×3 (05:30→21:37)
[2018-05-06 06:54] LABS: CHLORIDE 107 mEq/L (98-107)
[2018-05-06] MEDS: MEROPENEM 500 MG in SODIUM CHLORIDE 0.9% 50 ML IV SCH ×3 (07:04→21:34)
[2018-05-06 07:09] LABS: HEMOGLOBIN. 10.7 g/dL (12.0-16.0); MEAN CORPUSCULAR VOLUME 89.6 fL (81.0-99.0); MEAN PLATELET VOLUME 9.5 fl (7.4-10.4); PLATELET 149 x1000/uL (130-400); RED BLOOD CELL COUNT 3.57 mill/uL (4.2-5.4); RED CELL DISTRIBUTION WIDTH 14.5 % (11.6-14.6)
[2018-05-06] MEDS: ACETYLCYSTEINE 100MG/ML 10% VIAL 4ML INH SCH ×2 (07:42→15:35)
[2018-05-06] MEDS: DOCUSATE SODIUM 250MG CAPSULE PO SCH (09:00)
[2018-05-06] MEDS: LEVETIRACETAM 500 MG in SODIUM CHLORIDE 0.9% 100 ML IV SCH ×2 (09:12→21:34)
[2018-05-06] MEDS ORDERED: POTASSIUM CHLORIDE 20MEQ TABLET SR PO NR (10:00)
[2018-05-06] MEDS ORDERED: LACTULOSE 20G/30ML UDC PO NR (10:00)
[2018-05-06] MEDS ORDERED: MAGNESIUM 1 G PREMIX 100 ML IV NR (11:30)
[2018-05-06] MEDS ORDERED: KCL 20MEQ/100ML PREMIX 100 ML IV NR (12:00)
[2018-05-06 13:32] LABS: BG BASE EXCESS 2.3 mmol/L (-2.0-2.0); BG CARBOXYHEMOGLOBIN 0.3 % (0.5-1.5); BG DEOXYHEMOGLOBIN 2.6 % (0.0-5.0); BG FRACTION INSPIRED OXYGEN 21; BG HCO3 ACT 25.6 mmol/L (22.0-26.0); BG METHEMOGLOBIN 0.2 % (0.0-1.5); BG OXYGEN SATURATION 97.4 % (92.0-98.5); BG OXYHEMOGLOBIN 96.9 % (94.0-97.0); BG PCO2 35.1 mmHg (35.0-45.0); BG PH 7.481 (7.350-7.450); BG PO2 97.1 mmHg (75.0-100.0); BG SAMPLE SITE RIGHT BRACHIAL; BG TOTAL HEMOGLOBIN 11.2 g/dL (12.0-18.0); BG VENT MODE ROOM AIR
[2018-05-06 21:17] LABS: ATYPICAL LYMPHOCYTES 1; PLATELET ESTIMATE NORMAL
[2018-05-06] MEDS: ATORVASTATIN CALCIUM 10MG TABLET PO SCH (21:44)
[2018-05-07] VITALS (13 sets, daily range): BP systolic 95–143; BP diastolic 39–77
[2018-05-07] MEDS: IPRATROPIUM/ALBUTEROL 0.5-3(2.5)MG/3ML NEB HHN SCH ×5 (01:12→16:37)
[2018-05-07] MEDS: ACETYLCYSTEINE 100MG/ML 10% VIAL 4ML INH SCH ×2 (01:13→07:56)
[2018-05-07] MEDS: MEROPENEM 500 MG in SODIUM CHLORIDE 0.9% 50 ML IV SCH ×2 (05:23→14:59)
[2018-05-07] MEDS: DOCUSATE SODIUM 250MG CAPSULE PO SCH (09:00)
[2018-05-07] MEDS: DEXT 5%/0.45% NACL KCL 10MEQ/L 1,000 ML IV SCH (09:55)
[2018-05-07] MEDS: LEVETIRACETAM 500 MG in SODIUM CHLORIDE 0.9% 100 ML IV SCH (09:55)
[2018-05-07] MEDS: APIXABAN 2.5 MG TABLET PO SCH ×2 (09:56→17:16)
[2018-05-07] MEDS: ASPIRIN 81MG EC TABLET PO SCH (09:56)
[2018-05-07 10:21] LABS: HEMATOCRIT. 34.3 % (36.0-48.0); HEMOGLOBIN. 11.3 g/dL (12.0-16.0); MEAN CORPUSCULAR HEMOGLOBIN 29.9 pg (28.0-32.0); MEAN CORPUSCULAR VOLUME 90.2 fL (81.0-99.0); MEAN PLATELET VOLUME 9.6 fl (7.4-10.4); PLATELET 150 x1000/uL (130-400); RED CELL DISTRIBUTION WIDTH 14.4 % (11.6-14.6)
[2018-05-07 10:36] LABS: CHLORIDE 109 mEq/L (98-107)
[2018-05-07 10:51] LABS: PHOSPHORUS 2.6 mg/dL (2.5-4.9)
[2018-05-07 13:30] LABS: PLATELET ESTIMATE NORMAL
== END 2018-05-07 21:20 | DRG 871 ==
LOC: ER 16:14 → 6WST 16:15 → OBSVTOIN 16:15 → EDBEDREQ 18:17 → EDBEDREQSVC 18:17 → ENRESERV 18:43 → 5EST 05-03 23:30
PROVIDERS: ADMIT Family Medicine Adult Medicine; ATTEND Family Medicine Adult Medicine
PROC: 02HV33Z Insertion of Infusion Device into Superior Vena Cava, Percutaneous Approach (ICD-10-PCS; principal; 2018-05-05)
PROC: B5181ZA Fluoroscopy of Superior Vena Cava using Low Osmolar Contrast, Guidance (ICD-10-PCS; 2018-05-05)
PROC: B548ZZA Ultrasonography of Superior Vena Cava, Guidance (ICD-10-PCS; 2018-05-05)
DX: A41.9 Sepsis, unspecified organism (principal); G92 Toxic encephalopathy; J69.0 Pneumonitis due to inhalation of food and vomit; D68.59 Other primary thrombophilia; I67.82 Cerebral ischemia; J98.11 Atelectasis; E44.0 Moderate protein-calorie malnutrition; N39.0 Urinary tract infection, site not specified; B96.20 Unspecified Escherichia coli [E. coli] as the cause of diseases classified elsewhere; E78.5 Hyperlipidemia, unspecified; G40.909 Epilepsy, unspecified, not intractable, without status epilepticus; E78.00 Pure hypercholesterolemia, unspecified; E83.42 Hypomagnesemia; I48.91 Unspecified atrial fibrillation; R09.02 Hypoxemia; R00.0 Tachycardia, unspecified; R06.89 Other abnormalities of breathing; R65.20 Severe sepsis without septic shock; E87.6 Hypokalemia; F03.90 Unspecified dementia, unspecified severity, without behavioral disturbance, psychotic disturbance, mood disturbance, and anxiety; I10 Essential (primary) hypertension; I25.10 Atherosclerotic heart disease of native coronary artery without angina pectoris; I25.2 Old myocardial infarction; Z79.01 Long term (current) use of anticoagulants; Z86.19 Personal history of other infectious and parasitic diseases; Z86.718 Personal history of other venous thrombosis and embolism; Z86.73 Personal history of transient ischemic attack (TIA), and cerebral infarction without residual deficits; Z68.26 Body mass index [BMI] 26.0-26.9, adult
CPT/HCPCS: 36415; 36569; 36600; 51702; 70450; 70551; 71045; 76770; 76937; 77001; 80048; 80053; 80061; 80076; 81003; 82140; 82375; 82607; 82746; 82805; 83036; 83605; 83735; 83880; 84100; 84439; 84443; 84481; 84484; 85025; 85610; 85730; 86850; 86900; 87040; 87077; 87086; 87186; 92610; 93005; 94640; 96365; 96366; 99285; C1725; G0482; J1650; J1953; J1956; J2185; J2543; J3370; J3475; J3480; J3490; J7030; J7050; J7060; J7608; J7620; A4315

== ENCOUNTER 2020-11-27 18:28 | Emergency (ER) | payer BC ==
[~2020-11-27] VITALS: Ht 165.1 cm; Wt 64.0 kg
[~2020-11-27 18:28] MED LIST changes: +ACET650T37 PO; -APIX2.5T PO; -ATOR10TA69 PO; +ATORVASTATIN PO; +CLONIDINE PO; +DIPH50CA38 PO; +ELIQUIS PO; +KEPP500 PO; +SENN-178 MT
[2020-11-27] MEDS ORDERED: LEVETIRACETAM 1000MG PREMIX 100 ML IV ONE (19:45)
[2020-11-27] MEDS ORDERED: SODIUM CHLORIDE 0.9% 1,000 ML IV ONE (19:45)
[2020-11-28 00:08] LABS: BASOPHILS % 0.8 % (0.0-2.0); EOSINOPHILS % 2.3 % (0.0-5.0); HEMATOCRIT. 42.4 % (36.0-48.0); LYMPHOCYTES % 36.9 % (20.0-50.0); MEAN CORPUSCULAR HEMOGLOBIN 30.5 pg (28.0-32.0); MEAN CORPUSCULAR VOLUME 92.7 fL (81.0-99.0); MEAN PLATELET VOLUME 9.7 fl (7.4-10.4); MONOCYTES % 9.8 % (2.0-8.0); NEUTROPHILS % 50.2 % (40.0-76.0); PLATELET 138 x1000/uL (130-400); RED BLOOD CELL COUNT 4.57 mill/uL (4.2-5.4)
[2020-11-28 00:13] LABS: CHLORIDE 108 mEq/L (98-107)
[2020-11-28 00:17] LABS: ETHANOL BLOOD < 10 mg/dL
[2020-11-28] MEDS ORDERED: LEVETIRACETAM 1000MG PREMIX 100 ML IV SCH (08:00)
[2020-11-28 12:03] VITALS: BP 132/75
== END 2020-11-28 12:40 | disposition home or self-care (01) ==
LOC: ER 18:28 → EDBEDREQSVC 11-28 06:34 → EDBEDREQ 11-28 06:34 → EDBEDREQTM 11-28 06:34 → CANBEDREQ 11-28 11:47 → ER 11-28 12:40
DX: G40.909 Epilepsy, unspecified, not intractable, without status epilepticus (principal); Z20.828 Contact with and (suspected) exposure to other viral communicable diseases; I69.320 Aphasia following cerebral infarction; I69.398 Other sequelae of cerebral infarction; E11.9 Type 2 diabetes mellitus without complications; M24.59 Contracture, other specified joint; I10 Essential (primary) hypertension; E78.00 Pure hypercholesterolemia, unspecified; Z79.899 Other long term (current) drug therapy
CPT/HCPCS: 36415; 70450; 71045; 80053; 80320; 85025; 87635; 96365; 99285; C9803; J1953; J7030; G0480